=== PATIENT | male | born 1965 | race Caucasian/White ===

== ENCOUNTER 2018-03-26 11:05 | Day surgery (SDC) | payer MEDICARE, MEDICAID ==
[~2018-03-26] VITALS: Ht 190.5 cm; Wt 54.3 kg
[~2018-03-26 11:05] MED LIST: ALBU6.7H INH; KEP500T PO
[2018-03-26] MEDS ORDERED: normal saline 1000ml 1,000 ML IV PRN (11:20)
[2018-03-26] MEDS ORDERED: HYDR2TAB28 PO (11:30)
[2018-03-26] MEDS ORDERED: ALBU6.7H INH (11:31)
[2018-03-26 11:36] VITALS: BP 137/90
[2018-03-26 11:43] LABS: BASOPHILS # (AUTO) 0.1 X10'3 (0-0.2); BASOPHILS % (AUTO) 0.7 % (0-1); EOSINOPHILS # (AUTO) 0.1 X10'3 (0-0.9); EOSINOPHILS % (AUTO) 1.3 % (0-6); HEMATOCRIT 47.1 % (42.0-52.0); HEMOGLOBIN 15.9 g/dl (14.0-17.9); LYMPHOCYTES # (AUTO) 1.8 X10'3 (1.1-4.8); LYMPHOCYTES % (AUTO) 18.4 % (21-51); MEAN CORPUSCULAR HEMOGLOBIN 34.7 PG (27.0-31.0); MEAN CORPUSCULAR HGB CONC 33.7 % (33.0-36.5); MEAN CORPUSCULAR VOLUME 102.8 FL (78-98); MEAN PLATELET VOLUME 7.2 FL (7.4-10.4); MONOCYTES # (AUTO) 1.3 X10'3 (0-0.9); MONOCYTES % (AUTO) 13.5 % (2-12); NEUTROPHILS # (AUTO) 6.5 X10'3 (1.8-7.7); NEUTROPHILS % (AUTO) 66.1 % (42-75); PLATELET COUNT 442 X10'3 (140-440); RED BLOOD COUNT 4.58 X10'6 (4.70-6.10); RED CELL DISTRIBUTION WIDTH 12.8 % (11.5-14.5); WHITE BLOOD COUNT 9.8 X10'3 (4.5-11.0)
[2018-03-26 11:52] LABS: ALBUMIN 3.6 G/DL (3.4-5.0); ANION GAP 13 (8-16); BLOOD UREA NITROGEN 3 MG/DL (7-18); BUN/CREATININE RATIO 5.8 (5.4-32.0); CHLORIDE 95 MMOL/L (99-107); CREATININE 0.52 MG/DL (0.60-1.10); SODIUM 138 MMOL/L (135-145); eGFR > 90 ML/MIN
[2018-03-26 11:53] LABS: GLUCOSE 99 MG/DL (70-104); POTASSIUM 2.7 MMOL/L (3.5-5.1)
[2018-03-26 11:54] LABS: PROTHROMBIN TIME 10.3 SECONDS (9.0-12.0)
[2018-03-26] MEDS ORDERED: potassium Cl 20 mEq SR tablet PO PRN (12:50)
[2018-03-26] MEDS ORDERED: LIDOcaine 1%/PF 5ML 10 MG/ML VIAL SQ ONE (12:55)
[2018-03-26] MEDS ORDERED: fentaNYL/PF 50MCG/1 ML 2ML syringe IV PRN (12:55)
[2018-03-26] MEDS ORDERED: midazolam 2 mg/2 ml injection IV PRN (12:55)
[2018-03-26] MEDS ORDERED: heparin sodium, porcine/PF 100unit/ml 5ML syringe ICATH ONE (12:55)
[2018-03-26] MEDS ORDERED: LIDOcaine 1%/PF 5ML 10 MG/ML VIAL ONE (13:01)
[2018-03-26] MEDS ORDERED: heparin sodium, porcine/PF 100unit/ml 5ML syringe ONE (13:01)
[2018-03-26] MEDS ORDERED: fentaNYL/PF 50MCG/1 ML 2ML syringe ONE ×2 (13:08→13:33)
[2018-03-26] MEDS ORDERED: midazolam 2 mg/2 ml injection ONE ×2 (13:08→13:33)
[2018-03-26 14:08] VITALS: BP 130/81
[2018-03-26 14:15] VITALS: BP 159/99
[2018-03-26 14:30] VITALS: BP 159/88
[2018-03-26 14:45] VITALS: BP 147/84
== END 2018-03-26 15:05 | disposition home or self-care (01) ==
LOC: SSTAY O 11:05
PROVIDERS: ATTEND Radiology Diagnostic Radiology
DX: C09.8 Malignant neoplasm of overlapping sites of tonsil (principal); J43.9 Emphysema, unspecified; F17.210 Nicotine dependence, cigarettes, uncomplicated; Z86.79 Personal history of other diseases of the circulatory system; Z72.89 Other problems related to lifestyle; Z86.69 Personal history of other diseases of the nervous system and sense organs; Z79.891 Long term (current) use of opiate analgesic; Z79.899 Other long term (current) drug therapy; Z98.890 Other specified postprocedural states
CPT/HCPCS: 36415; 36561; 76937; 77001; 80048; 85025; 85610; 99152; 99153; J1642; J2001; J2250; J3010; J7030; A6219; C1788; C1894